=== PATIENT | male | born 1990 | race Caucasian/White ===

== ENCOUNTER 2017-02-12 14:58 | Emergency (ER) | payer SELFPAY ==
[~2017-02-12] VITALS: Ht 185.4 cm; Wt 98.9 kg
[2017-02-12 15:24] VITALS: BP 152/99
== END 2017-02-12 16:41 | disposition home or self-care (01) ==
LOC: ER 14:58
DX: S16.1XXA Strain of muscle, fascia and tendon at neck level, initial encounter (principal); V49.9XXA Car occupant (driver) (passenger) injured in unspecified traffic accident, initial encounter; Y93.89 Activity, other specified; Y99.8 Other external cause status; Y92.89 Other specified places as the place of occurrence of the external cause

== ENCOUNTER 2020-12-13 14:52 | Emergency (ER) | payer OTHER ==
[~2020-12-13] VITALS: Ht 185.4 cm; Wt 86.2 kg
[2020-12-13 15:27] LABS: Basophils # (auto) 0.1 10 ^3/uL (0-0.2); Basophils % (auto) 0.5 % (0.0-2.0); Eosinophils # (auto) 0 10 ^3/uL (0-0.8); Eosinophils % (auto) 0.2 % (0.0-7.0); Hematocrit 48.7 % (41.0-53.0); Hemoglobin 16.8 g/dL (13.5-17.5); Lymphocytes # (auto) 0.7 10 ^3/uL (0.4-5.4); Lymphocytes % (auto) 4.6 % (10.0-50.0); Mean Corpuscular Hemoglobin 30.4 pg (28.0-32.0); Mean Corpuscular Hgb Conc. 34.4 g/dL (32.0-36.0); Mean Corpuscular Volume 88.3 fL (80.0-100.0); Monocytes # (auto) 0.3 10 ^3/uL (0-1.3); Monocytes % (auto) 1.6 % (0.0-12.0); Neutrophils # (auto) 15.2 10 ^3/uL (1.6-8.6); Neutrophils % (auto) 93.1 % (37.0-80.0); Platelet Count (auto) 288 10^3/uL (140-450); Red Blood Cells 5.52 10^6/uL (4.5-5.90); Red Cell Distribution Width 13.9 % (11.8-14.3); White Blood Cell 16.3 10^3/uL (4.4-10.8)
[2020-12-13 15:46] LABS: Albumin 4.4 g/dL (3.4-5.0); Calcium 9.1 mg/dL (8.5-10.1); Potassium 4.3 mmol/L (3.5-5.1)
[2020-12-13 15:56] LABS: BUN/Creatinine Ratio 16.5; Bilirubin, Total 0.4 mg/dL (0.2-1.0); Total Protein 8.3 g/dL (6.4-8.2)
[2020-12-13] MEDS ORDERED: SODIUM CHLORIDE 0.9% 1,000 ML IVB ONE (17:45)
[2020-12-13 18:00] LABS: Urine Bacteria NONE SEEN /hpf (None Seen); Urine Blood Negative /uL (Negative); Urine Specific Gravity 1.023 (1.001-1.035); Urine WBC <1 /hpf (0 - 3)
[2020-12-13] MEDS ORDERED: ONDANSETRON HCL 4 MG/2 ML VIAL IV ONE (18:30)
[2020-12-13] MEDS ORDERED: MORPHINE SULF INJ 2 MG/ML SYRINGE 1ML IV ONE (18:30)
[2020-12-13 19:00] LABS: INR 0.99 (0.9-1.15); Partial Thromboplastin Time 31.8 sec (23.0-31.2)
[2020-12-13 20:47] VITALS: BP 155/86
== END 2020-12-13 21:12 | disposition home or self-care (01) ==
LOC: ER 14:52
DX: K85.20 Alcohol induced acute pancreatitis without necrosis or infection (principal); Z20.822 Contact with and (suspected) exposure to COVID-19
CPT/HCPCS: 36415; 71045; 73030; 74176; 80053; 81001; 82150; 83605; 83690; 83735; 85025; 85610; 85730; 87040; 87426; 96361; 96374; 96375; 99285; J2270; J2405